=== PATIENT | male | born 1955 | race Caucasian/White ===

== ENCOUNTER 2022-11-15 15:36 | Observation (INO) | payer MEDICARE, MEDICAID, SELFPAY ==
[2022-11-15] VITALS (18 sets, daily range): BP systolic 102–148; BP diastolic 70–104; PULSE 72–102; RESP 14–56; TEMP 36.8; O2SAT 93–99; BMI 29.4; BMI 25.7
--- NOTE | 2022-11-15 15:43 | XR_ITS ---
The [address] [address] Patient Name: JOLENE WILKES MRN: [id number] date: 1955 Sex: M Assigned Patient Location: ER Current Patient Location: Accession/Order Number: [id number] Exam Date: 11/15/2022 15:49 Report Date: 11/15/2022 16:11 At the request of: NAVA MOSQUEDA Procedure: XR chest 1V EXAM: XR chest 1V at 1547 hours HISTORY: Dyspnea COMPARISON: 03/17/2021 TECHNIQUE: AP upright portable chest x-ray FINDINGS: Study is limited by shallow inspiration and projection. The heart appears enlarged, with mild prominence of the central pulmonary vasculature. There is no clear evidence of a focal infiltrate, effusion or pneumothorax. The osseous structures are intact. XR/XR chest 1V IMPRESSION: Shallow inspiration. The cardiac enlargement is at least in part related to projection and inspiration effort. There is no clear evidence of a focal infiltrate or overt cardiac decompensation. A follow-up chest x-ray encouraging the patient to take a deep inspiration while in the fully upright position is recommended. Electronically authenticated by: SHARONA HORNE Date: 11/15/2022 16:11
--- NOTE | 2022-11-15 15:43 | CT_ITS ---
[address] [address] Patient Name: JOLENE WILKES MRN: [id number] date: 1955 Sex: M Assigned Patient Location: ER Current Patient Location: .MAIN Accession/Order Number: [id number] Exam Date: 11/15/2022 16:01 Report Date: 11/15/2022 17:00 At the request of: NAVA MOSQUEDA Procedure: CT angio chest EXAMINATION: CT angio chest, CT angio abdomen pelvis HISTORY: Dissection , extreme shortness of breath COMPARISON: CT abdomen pelvis 03/17/2021 stable 3.5 cm aneurysmal dilation of the right common iliac artery distal to the stent. TECHNIQUE: After obtaining the patient's consent, CT images of the chest, abdomen and pelvis were obtained with non-ionic intravenous contrast material. Axial, Coronal, and Sagittal images. Multi-planar reformatted/3-D images were created to optimize visualization of vascular anatomy. Dose reduction techniques were achieved by using automated exposure control and/or adjustment of mA and/or kV according to patient size and/or use of iterative reconstruction technique. FINDINGS: PULM VASC: No pulmonary embolism or abnormal opacity. LUNGS: Mild emphysematous changes. Small triangular-shaped density within lingula, likely atelectasis. PLEURA: No mass, effusion, or pneumothorax. ANNIE: No mass or adenopathy. MEDIASTINUM: No mass or adenopathy. CARDIAC: No enlargement, pericardial effusion, or pericardial thickening. CHEST WALL: No mass or axillary adenopathy. AORTA/VASCULAR: Large amount of noncalcified plaque throughout the thoracic and abdominal aorta. Fusiform aneurysmal dilation of the infrarenal abdominal aorta with prior aortobifemoral endograft stent placement. No evidence of leakage. Stable aneurysmal dilation of the common iliac arteries distal to the stents, 3.5 cm in diameter on the right, 3.0 cm on left. CELIAC ARTERY: Mild atherosclerotic narrowing at origin. SMA: Mild atherosclerotic narrowing at origin. RENAL ARTERIES: Moderate atherosclerotic narrowing at origins. LIVER: No enlargement, atrophy, abnormal density, or significant focal lesion. BILIARY: No visible dilatation or calcification. PANCREAS: No lesion, fluid collection, ductal dilatation, or atrophy. SPLEEN: No enlargement or focal lesion. ADRENALS: No mass or enlargement. KIDNEYS: Numerous bilateral renal cysts compatible with polycystic kidney disease. Small, atrophic right kidney. No mass, obstruction, or calcification. BOWEL/MESENTERY: Numerous noninflamed diverticula along the descending and sigmoid colon. No visible mass, obstruction, or bowel wall thickening. RETROPERITONEUM: No mass or adenopathy. LYMPHNODES: No enlarged lymph nodes. BLADDER: No wall thickening or mass. PELVIC ORGANS: Appropriate for age. ABDOMINAL WALL: No mass or hernia. BONES: No bony lesion or fracture. OTHER: Negative. CT/CT angio chest IMPRESSION: 1. No pulmonary embolism. 2. No aortic dissection. 3. Prior aortobifemoral endograft stent placement for aortic aneurysm without evidence of extravasation/leakage. Stable common iliac artery aneurysms bilaterally just distal to the ends of the endovascular stents. 4. Mild emphysematous changes within the lungs and small area of atelectasis, possibly infiltrates within lingula. 5. Polycystic kidney disease with marked atrophy of right kidney. No obstructive uropathy or appreciable stones. Electronically authenticated by: DION SAMSON Date: 11/15/2022 17:00
--- NOTE | 2022-11-15 15:46 | ECG_ITS ---
The [facility] Test Date: 2022-11-15 Pat Name: JOLENE WILKES Department: Room: [facility] Gender: Male [employer] Engineer: : 1955 Requested By: ROXANN DOBBINS Order Number: [id number] Reading MD: ROXANN DOBBINS Measurements Intervals [place] Rate: 98 P: 32 WA: 168 QRS: -5 QRSD: 84 T: 50 QT: 350 QTc: 406 Interpretive Statements 1100 Sinus rhythm 6220 Possible left atrial enlargement 9130 borderline ECG No previous ECG available for comparison Electronically Signed On 11-16-2022 6:21:04 EDT by ROXANN DOBBINS
--- NOTE | 2022-11-15 15:49 | ED.CHESTPAI1 ---
HPI - Chest Pain General Chief Complaint: Chest Pain Stated Complaint: CHEST PAIn Time Seen by Provider: 11/15/22 15:43 History of Present Illness HPI narrative: patient is a 67-year-old male who presents to the emergency department for the evaluation of chest pain and shortness of breath that he states began at 9 AM this morning. Patient presents proximal he seven hours after symptoms began, he states that he has been like this for the last several hours, no fevers, sputum production or hemoptysis. He has had dry coughing. He has a history of chronic obstructive pulmonary disease. He denies any history of heart attack or stroke. He does not take medications for diabetes. He does not wear home oxygen. No medications taken prior to arrival. History is limited as the patient is grunting, breathing rapidly and grabbing at his chest during initial interview. patient points to pain at the lower, inferior sternum and epigastrium. Related Data Home Medications Medication Instructions Recorded Confirmed amlodipine 10 mg tablet 10 mg PO QDAY 11/15/22 11/15/22 aspirin 81 mg tablet,delayed 81 mg PO QDAY 11/15/22 11/15/22 release atorvastatin 40 mg tablet 40 mg PO QDAY 11/15/22 11/15/22 carvedilol 12.5 mg tablet 12.5 mg PO Q12H 11/15/22 11/15/22 furosemide 20 mg tablet 20 mg PO QDAY 11/15/22 11/15/22 hydralazine 50 mg tablet 50 mg PO Q12H 11/15/22 11/15/22 losartan 25 mg tablet 25 mg PO QDAY 11/15/22 11/15/22 sodium bicarbonate 650 mg tablet 650 mg PO TID 11/15/22 11/15/22 Allergies Allergy/AdvReac Type Severity Reaction Status Date / Time No Known Allergies Allergy Verified 11/15/22 15:45 Review of Systems ROS Constitutional Denies: fever or chills Ears, nose, mouth, and throat Denies: throat pain Cardiovascular Reports: chest pain; Denies: palpitations Respiratory Reports: shortness of breath and cough Gastrointestinal Reports: abdominal pain; Denies: nausea or vomiting Musculoskeletal Denies: back pain Integumentary/Breast Denies: rash PFSH [facility], [facility] Medical History (Updated 11/15/22 @ 17:20 by Sarah Shelton) Surgical History (Updated 11/15/22 @ 17:11 by Sarah Shelton) Social History Smoking status: Current every day smoker Exam Narrative Exam Narrative: Gen.: Awake, alert, in mild distress Head: Normocephalic, atraumatic ENT: Moist mucous membranes Respiratory: tachypnea, faint expiratory wheezing Cardio: Regular rate and rhythm Gastrointestinal: Abdomen is soft, nondistended and nontender to palpation Extremities: Moves extremities equally, no injuries noted Psych: Normal mood and affect Neuro: No focal neuro deficit Skin: Warm, dry, intact Constitutional Vital Signs, click to edit/add: Last Vital Signs Pulse 87 11/15/22 17:31 Resp 22 11/15/22 17:31 BP 137/82 H 11/15/22 17:31 Pulse Ox 99 11/15/22 17:31 O2 Del Method Room Air 11/15/22 17:23 O2 Flow Rate 2 11/15/22 16:02 Course Vital Signs Vital signs: Vital Signs Pulse Rate 95 H 11/15/22 15:43 Respiratory Rate 31 H 11/15/22 15:43 Blood Pressure 148/104 H 11/15/22 15:43 Pulse Oximetry 95 11/15/22 15:43 Pulse Rate 87 11/15/22 17:31 Respiratory Rate 22 11/15/22 17:31 Blood Pressure 137/82 H 11/15/22 17:31 Pulse Oximetry 99 11/15/22 17:31 Oxygen Delivery Method Room Air 11/15/22 17:23 Oxygen Delivery Flow Rate 2 11/15/22 16:02 MDM - Chest Pain MDM Narrative Medical decision making narrative: on initial evaluation in the emergency department, patient was grunting, clutching at his chest and abdomen and tachypneic. Due to his presentation and concern for possible aortic dissection, the patient was sent emergently for CT angiogram of the chest/abdomen/pelvis. Chest x-ray was performed at the bedside which was unremarkable, after the patient returned from CT, we received lab studies showing chronic kidney disease and he was treated with gentle IV hydration. He does have a history of chronic kidney disease, polycystic kidneys, previous AAA repair. He also has a history of congestive heart failure and cardiomyopathy, although his BNP is improved from previous and he has no evidence of pulmonary edema on chest x-ray. He was treated with morphine, Zofran, Solu-Medrol, breathing treatments. He is resting much more comfortably on reevaluation and CT feels better. He will be admitted for rule out ACS/chronic obstructive pulmonary disease exacerbation to ICU stepdown to hospitalist. Dr. De La Cruz stated that we did not need to wait for a 2nd troponin prior to admission, patient will be admitted at this time. Medical Records Data Attestation: I reviewed the patient's medical records. Lab Data Attestation: I reviewed the patient's lab results. Labs: Lab Results 11/15/22 Range/Units 15:50 WBC 13.3 H (4.0-11.0) 10^3/uL RBC 5.70 (4.70-6.10) 10^6/uL Hgb 15.3 (14.0-18.0) g/dL Hct 46.3 (42.0-54.0) % MCV 81.2 (80.0-94.0) fL MCH 26.8 (25.9-34.0) pg MCHC 33.0 (29.9-35.2) g/dL RDW 14.3 (11.0-15.0) % Plt Count 219 (150-450) 10^3/uL MPV 10.2 (9.5-13.5) fL Neut % (Auto) 85.5 H (43.0-75.0) % Lymph % (Auto) 6.6 L (20.5-60.0) % [place] % (Auto) 6.3 (1.7-12.0) % Eos % (Auto) 0.6 L (0.9-7.0) % Baso % (Auto) 0.5 (0.2-2.0) % Neut # (Auto) 11.3 H (1.4-6.5) 10^3/uL Lymph # (Auto) 0.9 L (1.2-3.8) 10^3/uL [place] # (Auto) 0.8 (0.3-0.8) 10^3/uL Eos # (Auto) 0.1 (0.0-0.7) 10^3/uL Baso # (Auto) 0.1 (0.0-0.1) 10^3/uL Abs Immat Gran (auto) 0.07 H (0.00-0.03) 10^3/uL Imm/Tot Granulo (auto) 0.5 (0.0-0.5) % Sodium 137 (136-145) mmol/L Potassium 4.0 (3.5-5.1) mmol/L Chloride 102 (98-107) mmol/L Carbon Dioxide 22.4 (21.0-32.0) mmol/L Anion Gap 16.6 BUN 37.0 H (7.0-18.0) mg/dL Creatinine 2.85 H (0.70-1.30) mg/dL Est GFR ( Amer) 27 L (>=60) Est GFR (Non-Af Amer) 22 L (>=60) BUN/Creatinine Ratio 13.0 Glucose 98 (74-106) mg/dL Lactate 1.4 (0.4-2.0) mmol/L Calcium 9.1 (8.5-10.1) mg/dL Total Bilirubin 0.6 (0.2-1.0) mg/dL AST 16 (15-37) U/L ALT 15 L (16-63) U/L Alkaline Phosphatase 89 (46-116) U/L Troponin I High Sens 37.7 (4.0-76.1) pg/mL NT-Pro-B Natriuret Pep 939.0 H (<=900.0) pg/mL Total Protein 8.3 H (6.4-8.2) g/dL Albumin 3.6 (3.4-5.0) g/dL Globulin 4.7 g/dL Albumin/Globulin Ratio 0.8 Imaging Data Chest x-ray: Attestation: I have reviewed the pertinent imaging results. Radiologist's impression: Procedure: XR chest 1V EXAM: XR chest 1V at 1547 hours HISTORY: Dyspnea COMPARISON: 03/17/2021 TECHNIQUE: AP upright portable chest x-ray FINDINGS: Study is limited by shallow inspiration and projection. The heart appears enlarged, with mild prominence of the central pulmonary vasculature. There is no clear evidence of a focal infiltrate, effusion or pneumothorax. The osseous structures are intact. IMPRESSION: Shallow inspiration. The cardiac enlargement is at least in part related to projection and inspiration effort. There is no clear evidence of a focal infiltrate or overt cardiac decompensation. A follow-up chest x-ray encouraging the patient to take a deep inspiration while in the fully upright position is recommended. Electronically authenticated by: SHARONA HORNE Date: 11/15/2022 16:11 CT scan - chest: Attestation: I have reviewed the pertinent imaging results. Radiologist's impression: Procedure: CT angio chest EXAMINATION: CT angio chest, CT angio abdomen pelvis HISTORY: Dissection , extreme shortness of breath COMPARISON: CT abdomen pelvis 03/17/2021 stable 3.5 cm aneurysmal dilation of the right common iliac artery distal to the stent. TECHNIQUE: After obtaining the patient's consent, CT images of the chest, abdomen and pelvis were obtained with non-ionic intravenous contrast material. Axial, Coronal, and Sagittal images. Multi-planar reformatted/3-D images were created to optimize visualization of vascular anatomy. Dose reduction techniques were achieved by using automated exposure control and/or adjustment of mA and/or kV according to patient size and/or use of iterative reconstruction technique. FINDINGS: PULM VASC: No pulmonary embolism or abnormal opacity. LUNGS: Mild emphysematous changes. Small triangular-shaped density within lingula, likely atelectasis. PLEURA: No mass, effusion, or pneumothorax. ANNIE: No mass or adenopathy. MEDIASTINUM: No mass or adenopathy. CARDIAC: No enlargement, pericardial effusion, or pericardial thickening. CHEST WALL: No mass or axillary adenopathy. AORTA/VASCULAR: Large amount of noncalcified plaque throughout the thoracic and abdominal aorta. Fusiform aneurysmal dilation of the infrarenal abdominal aorta with prior aortobifemoral endograft stent placement. No evidence of leakage. Stable aneurysmal dilation of the common iliac arteries distal to the stents, 3.5 cm in diameter on the right, 3.0 cm on left. CELIAC ARTERY: Mild atherosclerotic narrowing at origin. SMA: Mild atherosclerotic narrowing at origin. RENAL ARTERIES: Moderate atherosclerotic narrowing at origins. LIVER: No enlargement, atrophy, abnormal density, or significant focal lesion. BILIARY: No visible dilatation or calcification. PANCREAS: No lesion, fluid collection, ductal dilatation, or atrophy. SPLEEN: No enlargement or focal lesion. ADRENALS: No mass or enlargement. KIDNEYS: Numerous bilateral renal cysts compatible with polycystic kidney disease. Small, atrophic right kidney. No mass, obstruction, or calcification. BOWEL/MESENTERY: Numerous noninflamed diverticula along the descending and sigmoid colon. No visible mass, obstruction, or bowel wall thickening. RETROPERITONEUM: No mass or adenopathy. LYMPHNODES: No enlarged lymph nodes. BLADDER: No wall thickening or mass. PELVIC ORGANS: Appropriate for age. ABDOMINAL WALL: No mass or hernia. BONES: No bony lesion or fracture. OTHER: Negative. IMPRESSION: 1. No pulmonary embolism. 2. No aortic dissection. 3. Prior aortobifemoral endograft stent placement for aortic aneurysm without evidence of extravasation/leakage. Stable common iliac artery aneurysms bilaterally just distal to the ends of the endovascular stents. 4. Mild emphysematous changes within the lungs and small area of atelectasis, possibly infiltrates within lingula. 5. Polycystic kidney disease with marked atrophy of right kidney. No obstructive uropathy or appreciable stones. Electronically authenticated by: DION SAMSON Date: 11/15/2022 17:00 ECG Data Attestation: I personally reviewed and interpreted this ECG as follows: (normal sinus rhythm at a rate of ninety-eight, no acute ST elevation, no ectopy. EKG reviewed by attending physician) ECG interpretation date: 11/15/22 ECG interpretation time: 15:56 Heart Score History: Moderatly Suspicious ECG: Normal Age: >65 years Risk Factors: >3 Risk Factors/ HX of CAD:2 Troponin: <Normal Limit Total Heart Score Recommendations & Risks:: 5 Discharge Plan Discharge Chief Complaint: Chest Pain Clinical Impression: COPD exacerbation, Chest pain Patient Disposition: Admitted as Observation Time of Disposition Decision: 17:14 Condition: Good Prescriptions / Home Meds: No Action amlodipine 10 mg tablet 10 mg PO QDAY aspirin 81 mg tablet,delayed release (DR/EC) 81 mg PO QDAY atorvastatin 40 mg tablet 40 mg PO QDAY carvedilol 12.5 mg tablet 12.5 mg PO Q12H furosemide 20 mg tablet 20 mg PO QDAY hydralazine 50 mg tablet 50 mg PO Q12H losartan 25 mg tablet 25 mg PO QDAY sodium bicarbonate 650 mg tablet 650 mg PO TID Stand Alone Forms: Portal Instructions
[2022-11-15] MEDS: 0.9 % SODIUM CHLORIDE 1,000 ML 100 ML IV (15:54)
[2022-11-15] MEDS: METHYLPREDNISOLONE SOD SUCC PF 125 MG/2 ML VIAL IVP (15:54)
[2022-11-15] MEDS: ONDANSETRON PF 4 MG/2 ML VIAL IV (15:54)
[2022-11-15] MEDS: MORPHINE SULFATE 4 MG/ML VIAL IV (15:54)
--- NOTE | 2022-11-15 15:54 | CT_ITS ---
[address] [address] Patient Name: JOLENE WILKES MRN: [id number] date: 1955 Sex: M Assigned Patient Location: ED.MAIN Current Patient Location: ED.MAIN Accession/Order Number: [id number] Exam Date: 11/15/2022 16:01 Report Date: 11/15/2022 17:00 At the request of: NAVA MOSQUEDA Procedure: CT angio abdomen pelvis EXAMINATION: CT angio chest, CT angio abdomen pelvis HISTORY: Dissection , extreme shortness of breath COMPARISON: CT abdomen pelvis 03/17/2021 stable 3.5 cm aneurysmal dilation of the right common iliac artery distal to the stent. TECHNIQUE: After obtaining the patient's consent, CT images of the chest, abdomen and pelvis were obtained with non-ionic intravenous contrast material. Axial, Coronal, and Sagittal images. Multi-planar reformatted/3-D images were created to optimize visualization of vascular anatomy. Dose reduction techniques were achieved by using automated exposure control and/or adjustment of mA and/or kV according to patient size and/or use of iterative reconstruction technique. FINDINGS: PULM VASC: No pulmonary embolism or abnormal opacity. LUNGS: Mild emphysematous changes. Small triangular-shaped density within lingula, likely atelectasis. PLEURA: No mass, effusion, or pneumothorax. ANNIE: No mass or adenopathy. MEDIASTINUM: No mass or adenopathy. CARDIAC: No enlargement, pericardial effusion, or pericardial thickening. CHEST WALL: No mass or axillary adenopathy. AORTA/VASCULAR: Large amount of noncalcified plaque throughout the thoracic and abdominal aorta. Fusiform aneurysmal dilation of the infrarenal abdominal aorta with prior aortobifemoral endograft stent placement. No evidence of leakage. Stable aneurysmal dilation of the common iliac arteries distal to the stents, 3.5 cm in diameter on the right, 3.0 cm on left. CELIAC ARTERY: Mild atherosclerotic narrowing at origin. SMA: Mild atherosclerotic narrowing at origin. RENAL ARTERIES: Moderate atherosclerotic narrowing at origins. LIVER: No enlargement, atrophy, abnormal density, or significant focal lesion. BILIARY: No visible dilatation or calcification. PANCREAS: No lesion, fluid collection, ductal dilatation, or atrophy. SPLEEN: No enlargement or focal lesion. ADRENALS: No mass or enlargement. KIDNEYS: Numerous bilateral renal cysts compatible with polycystic kidney disease. Small, atrophic right kidney. No mass, obstruction, or calcification. BOWEL/MESENTERY: Numerous noninflamed diverticula along the descending and sigmoid colon. No visible mass, obstruction, or bowel wall thickening. RETROPERITONEUM: No mass or adenopathy. LYMPHNODES: No enlarged lymph nodes. BLADDER: No wall thickening or mass. PELVIC ORGANS: Appropriate for age. ABDOMINAL WALL: No mass or hernia. BONES: No bony lesion or fracture. OTHER: Negative. CT/CT angio abdomen pelvis IMPRESSION: 1. No pulmonary embolism. 2. No aortic dissection. 3. Prior aortobifemoral endograft stent placement for aortic aneurysm without evidence of extravasation/leakage. Stable common iliac artery aneurysms bilaterally just distal to the ends of the endovascular stents. 4. Mild emphysematous changes within the lungs and small area of atelectasis, possibly infiltrates within lingula. 5. Polycystic kidney disease with marked atrophy of right kidney. No obstructive uropathy or appreciable stones. Electronically authenticated by: DION SAMSON Date: 11/15/2022 17:00
[2022-11-15 16:03] LABS: Basophils Absolute Auto 0.1 10^3/uL (0.0-0.1); Basophils Percent Auto 0.5 % (0.2-2.0); Eosinophils Absolute Auto 0.1 10^3/uL (0.0-0.7); Eosinophils Percent Auto 0.6 % (0.9-7.0); Hematocrit 46.3 % (42.0-54.0); Hemoglobin 15.3 g/dL (14.0-18.0); Immature Granulocytes Abs Auto 0.07 10^3/uL (0.00-0.03); Immature Granulocytes Pct Auto 0.5 % (0.0-0.5); Lymphocytes Absolute Auto 0.9 10^3/uL (1.2-3.8); Lymphocytes Percent Auto 6.6 % (20.5-60.0); Mean Corpuscular Hemoglobin 26.8 pg (25.9-34.0); Mean Corpuscular Volume 81.2 fL (80.0-94.0); Mean Platelet Volume 10.2 fL (9.5-13.5); Monocytes Absolute Auto 0.8 10^3/uL (0.3-0.8); Monocytes Percent Auto 6.3 % (1.7-12.0); Neutrophils Absolute Auto 11.3 10^3/uL (1.4-6.5); Neutrophils Percent Auto 85.5 % (43.0-75.0); Platelet Count 219 10^3/uL (150-450); Red Cell Distribution Width 14.3 % (11.0-15.0); White Blood Count 13.3 10^3/uL (4.0-11.0)
[2022-11-15 16:28] LABS: Lactate/Lactic Acid 1.4 mmol/L (0.4-2.0)
[2022-11-15 16:34] LABS: Alanine Aminotransferase 15 U/L (16-63); Albumin Globulin Ratio 0.8; Albumin Level 3.6 g/dL (3.4-5.0); Alkaline Phosphatase 89 U/L (46-116); Anion Gap 16.6; Aspartate Amino Transferase 16 U/L (15-37); Bilirubin Total 0.6 mg/dL (0.2-1.0); Calcium 9.1 mg/dL (8.5-10.1); Carbon Dioxide 22.4 mmol/L (21.0-32.0); Chloride 102 mmol/L (98-107); Estimated GFR (African America 27 (>=60); Estimated GFR (Non-African Ame 22 (>=60); Globulin 4.7 g/dL; Glucose 98 mg/dL (74-106); Sodium 137 mmol/L (136-145); Total Protein 8.3 g/dL (6.4-8.2); Troponin I High Sensitivity 37.7 pg/mL (4.0-76.1)
[2022-11-15] MEDS: ALBUTEROL SULFATE 2.5 MG/3 ML VIAL NEB IH (17:17)
[2022-11-15] MEDS: IPRATROPIUM/ALBUTEROL SULFATE 3 ML AMPUL.NEB IH ×2 (17:17→22:22)
[2022-11-15] MEDS: ASPIRIN 81 MG TAB.CHEW 162 MG PO (17:45)
--- NOTE | 2022-11-15 18:39 | CA_ITS ---
Patient: JOLENE WILKES Exam Date: 11/16/2022 : 1955 Gender:M Ordering : DR Pool De La Cruz . Admission #: [id number] Family : Order #: [id number] CLICK HERE TO VIEW EXAM ECHOCARDIOGRAM REPORT PROCEDURE: CA ECHO DOPPLER COMPLETE INDICATIONS: Dyspnea COMPARISON: None. DESCRIPTION: COMPLETE ECHOCARDIOGRAM Real-time transthoracic echocardiography with 2D, M-mode, spectral and color flow Doppler performed. QUALITY: Technical quality was good. LEFT VENTRICLE: Normal chamber size. Moderate concentric left ventricular hypertrophy. LV EF: Global left ventricular systolic function is normal. Calculated left ventricular ejection fraction is 64% DIASTOLIC: Diastolic function is indeterminate. ATRIAL SEPTUM: Inadequately seen. LEFT ATRIUM: Mild dilatation. RIGHT ATRIUM: Mild dilatation. RIGHT VENTRICLE: Normal chamber size. Normal right ventricular systolic function. TRICUSPID VALVE: Thickened with normal mobility. Trivial regurgitation. Mild pulmonary hypertension. RVSP 41mmHg MITRAL VALVE: Normal mobility and thickness. No evidence of mitral valve stenosis. There is no mitral annular calcification. Trivial mitral regurgitation. AORTIC VALVE: Normal trileaflet appearance. Mildly calcified aortic valve. Normal leaflet mobility. No evidence of aortic valve stenosis. Trivial aortic regurgitation. AORTIC ROOT: Normal diameter and appearance. PULMONIC VALVE: Normal thickness and mobility. No stenosis. Trivial regurgitation. PERICARDIUM: No evidence of pericardial effusion. IVC: Collapses with inspirations. Normal size. CONCLUSION: Global left ventricular systolic function is normal; visually estimated ejection fraction is 60 to 65%. Moderately increased left ventricular wall thickness. Diastolic function is indeterminate. Biatrial enlargement. Right ventricle is normal in size and systolic function. Mildly elevated right ventricular systolic pressure. No significant valvular abnormalities. Adult Echocardiography Procedure Report Left Ventricle LVEDD (3.7 - 5.6 cm): 4.46 cm LVESD (2.2 - 4.0 cm): 3.09 cm LVIVS thickness (0.6 - 1.2 cm): 1.32 cm LVPW thickness (0.5 - 1.0 cm): 1.40 cm e': 0.11 m/s E - e': 7.02 LVOT Max Gradient: 4.39 mm[Hg] LVOT Area (cm2): 1.05 m/s Peak Velocity (LVOT): 1.05 m/s Mean Velocity (LVOT): 0.77 m/s LVOT Diameter 2.21 cm Left Ventricular Ejection Fraction: 64.42 % Left Atrium LA Volume Index (2D A2C): 38.68 ml/m2 Left Atrium Systolic Dimension: 3.75 cm Mitral Valve MV E to A Ratio: 0.87 Mitral Valve A-Wave Peak Velocity: 0.86 m/s Mitral Valve E-Wave Peak Velocity: 0.75 m/s Right Ventricle RV Internal Diastolic Dimension: 3.31 cm Aorta AO Root Diam: 3.36 cm Ascending Ao Diam: 3.30 cm Aortic Valve AoV Area (Pe[place]): 2.34 cm2, 2.34 cm2 AoV Area (VTI): 2.48 cm2, 2.48 cm2 Peak Velocity(Antegrade Flow): 1.71 m/s Peak Gradient(Antegrade Flow): 11.71 mm[Hg] Mean Velocity(Antegrade Flow): 1.10 m/s Mean Gradient(Antegrade Flow): 5.79 mm[Hg] Velocity Time Integral: 34.90 cm Tricuspid Valve Peak Velocity (Regurgitant Flow): 2.97 m/s, 2.98 m/s, 3.08 m/s Pulmonic Valve Mean Gradient: 3.99 mm[Hg], 3.85 mm[Hg], 3.33 mm[Hg], 2.82 mm[Hg] Mean Velocity: 0.94 m/s, 0.92 m/s, 0.85 m/s, 0.78 m/s Peak Velocity: 1.24 m/s Peak Gradient: 7.08 mm[Hg], 6.56 mm[Hg], 6.16 mm[Hg], 4.96 mm[Hg] Right Atrium Right Atrium Systolic Pressure: 32.19 ml, 32.19 ml Dictated by: Yao Singer M.D. on 11/16/2022 at 12:20 Approved by: Yao Singer M.D. on 11/16/2022 at 12:23
[2022-11-15 19:20] LABS: Creatine Kinase 51 U/L (39-308); Creatine Kinase MB <0.50 ng/mL (<=3.60); Troponin I High Sensitivity 30.1 pg/mL (4.0-76.1)
[2022-11-15] MEDS: LACTATED RINGER'S SOLUTION 1,000 ML 100 ML IV (21:03)
[2022-11-15] MEDS: LEVOFLOXACIN IN DEXTROSE 5 % 750 MG/150 ML PIGGYBACK IV (21:03)
[2022-11-15] MEDS: SODIUM BICARBONATE 325 MG TABLET 650 MG PO (21:06)
[2022-11-16] VITALS (8 sets, daily range): BP systolic 116–139; BP diastolic 66–84; PULSE 63–77; RESP 16–18; TEMP 36.3; O2SAT 94–97
[2022-11-16] MEDS: IPRATROPIUM/ALBUTEROL SULFATE 3 ML AMPUL.NEB IH ×2 (04:20→10:47)
[2022-11-16 05:02] LABS: Alanine Aminotransferase 15 U/L (16-63); Albumin Globulin Ratio 0.7; Albumin Level 2.8 g/dL (3.4-5.0); Alkaline Phosphatase 68 U/L (46-116); Anion Gap 17.1; Aspartate Amino Transferase 11 U/L (15-37); BUN Creatinine Ratio 14.2; Bilirubin Total 0.3 mg/dL (0.2-1.0); Calcium 8.5 mg/dL (8.5-10.1); Carbon Dioxide 18.8 mmol/L (21.0-32.0); Chloride 104 mmol/L (98-107); Estimated GFR (African America 25 (>=60); Estimated GFR (Non-African Ame 21 (>=60); Globulin 4.1 g/dL; Glucose 191 mg/dL (74-106); Potassium 3.9 mmol/L (3.5-5.1); Sodium 136 mmol/L (136-145); Total Protein 6.9 g/dL (6.4-8.2)
[2022-11-16] MEDS: SODIUM BICARBONATE 325 MG TABLET 650 MG PO (05:04)
[2022-11-16] MEDS: LACTATED RINGER'S SOLUTION 1,000 ML 100 ML IV (05:07)
[2022-11-16 07:47] LABS: Basophils Percent Auto 0.2 % (0.2-2.0); Hematocrit 38.6 % (42.0-54.0); Hemoglobin 12.8 g/dL (14.0-18.0); Immature Granulocytes Abs Auto 0.04 10^3/uL (0.00-0.03); Immature Granulocytes Pct Auto 0.6 % (0.0-0.5); Lymphocytes Absolute Auto 0.4 10^3/uL (1.2-3.8); Lymphocytes Percent Auto 5.6 % (20.5-60.0); Mean Corpuscular HGB Conc 33.2 g/dL (29.9-35.2); Mean Corpuscular Hemoglobin 27.1 pg (25.9-34.0); Mean Corpuscular Volume 81.8 fL (80.0-94.0); Mean Platelet Volume 10.7 fL (9.5-13.5); Monocytes Absolute Auto 0.4 10^3/uL (0.3-0.8); Monocytes Percent Auto 6.7 % (1.7-12.0); Neutrophils Absolute Auto 5.5 10^3/uL (1.4-6.5); Neutrophils Percent Auto 86.9 % (43.0-75.0); Platelet Count 174 10^3/uL (150-450); Red Blood Count 4.72 10^6/uL (4.70-6.10); Red Cell Distribution Width 14.2 % (11.0-15.0); White Blood Count 6.3 10^3/uL (4.0-11.0)
[2022-11-16] MEDS: ATORVASTATIN CALCIUM 40 MG TABLET PO (08:50)
[2022-11-16] MEDS: HYDRALAZINE HCL 50 MG TABLET PO (08:50)
[2022-11-16] MEDS: INSULIN ASPART 300 UNIT/3 ML PEN SUBQ (08:51)
[2022-11-16] MEDS: ASPIRIN 81 MG TABLET.DR PO (08:51)
[2022-11-16] MEDS: AMLODIPINE BESYLATE 5 MG TABLET 10 MG PO (08:51)
[2022-11-16] MEDS: CARVEDILOL 12.5 MG TABLET PO (08:51)
[2022-11-16] MEDS: L. ACIDOPHILUS/L.BULGARICUS 1 PACKET GRAN.PACK PO (08:51)
[2022-11-16] MEDS: LOSARTAN POTASSIUM 25 MG TABLET PO (08:56)
[2022-11-16 09:10] LABS: Glucometer 145 mg/dL (74-106)
--- NOTE | 2022-11-16 10:23 | CM.NOTE ---
Rounds made with Dr. De La Cruz, discussed discharge to home today. Pt denies any discharge needs. Pt up ad alfredo in room, lives with in [place] and is independent.
--- NOTE | 2022-11-16 10:26 | P.HP_ITS ---
H&P: HPI History of Present Illness Chief complaint: CHEST PAIN R/O COPD Narrative: Patient was seen and evaluated in the emergency room secondary to increasing chest pressure-evaluation found possible acute exacerbation of COPD. Cardiac markers were negative. Patient was admitted for observation overnight to rule out myocardial ischemia. Laboratory evaluation was good. Patient feels back to baseline. [facility] Medical History (Updated 11/15/22 @ 17:20 by Sarah Shelton) Surgical History (Updated 11/15/22 @ 17:11 by Sarah Shelton) Social History Smoking status: Current every day smoker Meds Home Medications and Allergies Home Medications Medication Instructions Recorded Confirmed Type amlodipine 10 mg tablet 10 mg PO QDAY 11/15/22 11/15/22 History aspirin 81 mg tablet,delayed 81 mg PO QDAY 11/15/22 11/15/22 History release atorvastatin 40 mg tablet 40 mg PO QDAY 11/15/22 11/15/22 History carvedilol 12.5 mg tablet 12.5 mg PO Q12H 11/15/22 11/15/22 History furosemide 20 mg tablet 20 mg PO QDAY 11/15/22 11/15/22 History hydralazine 50 mg tablet 50 mg PO Q12H 11/15/22 11/15/22 History losartan 25 mg tablet 25 mg PO QDAY 11/15/22 11/15/22 History sodium bicarbonate 650 mg tablet 650 mg PO TID 11/15/22 11/15/22 History levofloxacin 750 mg tablet 750 mg PO DAILY 10 days #10 tabs 11/16/22 Rx Allergies Allergy/AdvReac Type Severity Reaction Status Date / Time No Known Allergies Allergy Verified 11/15/22 15:45 Exam Constitutional Vital Signs, click to edit/add: Last Vital Signs Temp 97.3 F L 11/16/22 07:53 Pulse 63 11/16/22 09:05 Resp 18 11/16/22 07:53 BP 139/84 H 11/16/22 08:50 Pulse Ox 97 11/16/22 07:53 O2 Del Method Room Air 11/16/22 07:53 O2 Flow Rate 2 11/15/22 18:37 Documenting provider has reviewed patient's vital signs: yes Common normals: no apparent distress Exam limitations: no altered mental status Respiratory Common normals: normal respiratory effort Cardio Common normals: regular rate, regular rhythm and no murmurs GI Common normals: Normal to inspection, nondistended, normoactive bowel sounds present, soft to palpation and non-tender Results Labs Labs: Short CBC 11/15/22 11/16/22 Range/Units 15:50 04:20 WBC 13.3 H 6.3 (4.0-11.0) 10^3/uL Hgb 15.3 12.8 L (14.0-18.0) g/dL Hct 46.3 38.6 L (42.0-54.0) % Plt Count 219 174 (150-450) 10^3/uL BMP 11/15/22 11/16/22 15:50 04:20 Sodium 137 136 Potassium 4.0 3.9 Chloride 102 104 Carbon Dioxide 22.4 18.8 L BUN 37.0 H 43.0 H Creatinine 2.85 H 3.03 H Glucose 98 191 H Calcium 9.1 8.5 Cardiac Enzymes 11/15/22 Range/Units 18:50 Total Creatine Kinase 51 (39-308) U/L CK-MB (CK-2) <0.50 (<=3.60) ng/mL Liver Function 11/15/22 11/16/22 Range/Units 15:50 04:20 Total Bilirubin 0.6 0.3 (0.2-1.0) mg/dL AST 16 11 L (15-37) U/L ALT 15 L 15 L (16-63) U/L Alkaline Phosphatase 89 68 (46-116) U/L Albumin 3.6 2.8 L (3.4-5.0) g/dL Assessment and Plan Assessment and Plan (1) COPD exacerbation: (2) Chest pain: Plan Chest pain-myocardial infarction ruled out-check on echocardiogram, initial report is greater than 55% ejection fraction. At this point with him overall improved he will be discharged home in improving condition. Medications see list. Follow-up with PCP within the next week. Patient exacerbation of COPD did have some hyperglycemia with the steroids. We will hold off on that as an outpatient but continue antibiotics and is home treatments.
--- NOTE | 2022-11-17 07:26 | CM.NOTE ---
11/16/22- Medicare Outpatient Observation Notice discussed with pt, pt verbalizes understanding and signs paper. Original given to pt and copy placed on pt's chart.
--- NOTE | 2022-11-17 16:07 | CM.DCFOLLOWU ---
Person spoke with:patient's How are you feeling? well How is your pain? no pain Did you understand your discharge instructions? yes Do you have any questions about your discharge instructions? no Were you given any prescriptions at discharge? yes Were you able to get your prescriptions filled? yes Do you understand how to take your medications as ordered? yes Do you have any questions about your follow up appointment and do you plan to keep your follow up appointment? no questions, follow up scheduled with Suzi Jacome on November 24 2022 Is there anything else that you would like to discuss? no Questions/Comments/Concerns/Other:
== END 2022-11-16 12:51 | disposition home or self-care (01) ==
LOC: ER 17:54 → ICU 18:17
PROVIDERS: Physician Assistant; Admitting Provider Family Medicine; Emergency Provider Emergency Medicine; Visit Provider Family Medicine
DX: J44.1 Chronic obstructive pulmonary disease with (acute) exacerbation (principal); R07.9 Chest pain, unspecified; F17.210 Nicotine dependence, cigarettes, uncomplicated; Z79.82 Long term (current) use of aspirin; Z79.899 Other long term (current) drug therapy; R73.9 Hyperglycemia, unspecified; T38.0X5A Adverse effect of glucocorticoids and synthetic analogues, initial encounter; N18.9 Chronic kidney disease, unspecified; I50.9 Heart failure, unspecified; Q61.3 Polycystic kidney, unspecified
CPT/HCPCS: 36415; 71045; 71275; 74174; 80053; 82550; 82553; 82948; 83605; 83735; 83880; 84484; 85025; 87070; 93005; 93306; 94640; 94667; 94668; 94761; 96374; 96375; 99285; G0378; J2930; Q9966

== ENCOUNTER 2022-11-20 12:22 | Emergency (ER) | payer MEDICARE, MEDICAID, SELFPAY ==
[2022-11-20] VITALS (17 sets, daily range): BP systolic 87–138; BP diastolic 58–117; PULSE 69–77; RESP 14–26; O2SAT 88–100; BMI 34.9
--- NOTE | 2022-11-20 12:30 | ECG_ITS ---
The [facility] Test Date: 2022-11-20 Pat Name: JOLENE WILKES Department: Room: - Gender: Male [employer]: : 1955 Requested By: [id number] Order Number: [id number] Reading MD: ALEJANDRINA SIDHU Measurements Intervals [place] Rate: 74 P: 67 NM: 182 QRS: 17 QRSD: 84 T: 69 QT: 394 QTc: 422 Interpretive Statements [address]/T wave changes, can't exclude inferolateral ischemia 9110 normal ECG Compared to ECG 11/15/2022 15:46:28 No significant changes Electronically Signed On 11-20-2022 14:36:56 EDT by ALEJANDRINA SIDHU
--- NOTE | 2022-11-20 12:30 | CT_ITS ---
The [address] [address] Patient Name: JOLENE WILKES MRN: [id number] date: 1955 Sex: M Assigned Patient Location: ED.MAIN Current Patient Location: ER Accession/Order Number: [id number] Exam Date: 11/20/2022 12:30 Report Date: 11/20/2022 13:43 At the request of: KARO JOSEPH Procedure: CT stroke head/brain wo con CT stroke head/brain wo con CLINICAL HISTORY: syncope. COMPARISON: 06/19/2017. TECHNIQUE: Noncontrast axial CT images of the brain were obtained from the vertex through the skull base. Sagittal and coronal reconstructions. Bone and brain windows are provided for review. Dose reduction techniques were achieved by using automated exposure control and/or adjustment of mA and/or kV according to patient size and/or use of iterative reconstruction technique. FINDINGS: Global volume loss and ex vacuo prominence of the ventricles. Multifocal white matter hypodensity is nonspecific but likely from small vessel ischemic disease. No mass, midline shift, acute bleed, or extra-axial fluid collection. No CT evidence of acute large territorial infarction. Visualized paranasal sinuses are clear. The mastoid air cells are well aerated. Scalp, calvarium and orbital contents are free of disease. CT/CT stroke head/brain wo con IMPRESSION: Small vessel ischemic and age related changes of the brain as above, similar to prior. No acute process noncontrast head CT. Findings discussed with Dr. Joseph on date of study at 1:40 PM. Electronically authenticated by: JAILYN PATRICIA Date: 11/20/2022 13:43
--- NOTE | 2022-11-20 12:30 | XR_ITS ---
The [address] [address] Patient Name: JOLENE WILKES MRN: [id number] date: 1955 Sex: M Assigned Patient Location: ED.MAIN Current Patient Location: ER Accession/Order Number: [id number] Exam Date: 11/20/2022 13:08 Report Date: 11/20/2022 13:41 At the request of: KARO JOSEPH Procedure: XR chest 1V PROCEDURE: XR chest 1V DATE: 11/20/2022 12:08 PM CDT COMPARISONS: 11/15/2022 CLINICAL INDICATION: 67 years Male syncope FINDINGS: The cardiomediastinal silhouette and pulmonary vasculature are within normal limits. The thoracic aorta is somewhat tortuous and prominent, stable. The lungs are clear. There is no evidence of pleural effusion or pneumothorax. XR/XR chest 1V IMPRESSION: This is a better inspiratory exam than 11/15/2022. Stable chest. Electronically authenticated by: BI ODELL Date: 11/20/2022 13:41
--- NOTE | 2022-11-20 12:30 | ED.SYNCOPE1 ---
HPI - Syncope General Chief Complaint: Syncope Stated Complaint: other Time Seen by Provider: 11/20/22 12:29 History of Present Illness HPI narrative: Patient presents to emergency department with the complaint of syncope. Patient was brought in by private car after he was Working out in the yard all morning and hot humid day has not had anything to eat or drink. He was talking to his grandson and suddenly was just going out of it. He did not fall but was laid down by the family and dragged into the car. Family drove him to the hospital for evaluation. The patient was not cyanotic but was very pale. Has a history of aneurysms. He was seen in the emergency department on Tuesday with complaint of chest pain. Patient has a history of chronic kidney disease.Patient states he had the same thing happened to him several months ago and he was dehydrated at that time. He denies being sick with any fever, chills, or cough. He has not had any upper respiratory infection symptoms. Denies any nausea, vomiting, diarrhea, constipation, abdominal pain. He denies any chest pain, shortness of breath. Patient's glucose was normal. Family denies any seizure activity. Related Data Home Medications Medication Instructions Recorded Confirmed amlodipine 10 mg tablet 10 mg PO QDAY 11/15/22 11/15/22 aspirin 81 mg tablet,delayed 81 mg PO QDAY 11/15/22 11/15/22 release atorvastatin 40 mg tablet 40 mg PO QDAY 11/15/22 11/15/22 carvedilol 12.5 mg tablet 12.5 mg PO Q12H 11/15/22 11/15/22 furosemide 20 mg tablet 20 mg PO QDAY 11/15/22 11/15/22 hydralazine 50 mg tablet 50 mg PO Q12H 11/15/22 11/15/22 losartan 25 mg tablet 25 mg PO QDAY 11/15/22 11/15/22 sodium bicarbonate 650 mg tablet 650 mg PO TID 11/15/22 11/15/22 Previous Rx's Medication Instructions Recorded levofloxacin 750 mg tablet 750 mg PO DAILY 10 days #10 tabs 11/16/22 Allergies Allergy/AdvReac Type Severity Reaction Status Date / Time No Known Allergies Allergy Verified 11/15/22 15:45 Review of Systems ROS Status of ROS 10 or more systems reviewed and unremarkable except as noted in history and below [facility] Medical History (Updated 11/20/22 @ 16:30 by Korin Piedra MD) Surgical History (Updated 11/15/22 @ 17:11 by Sarah Shelton) Social History Smoking status: Current every day smoker Exam Narrative Exam Narrative: Nurses notes and vital signs reviewed and patient is not hypoxic. General: Groggy and not responding to verbal stimuli. Arousable only to painful stimuli.localizes pain. Skin: Warm, diaphoretic, moderate pallor noted. No Rash Head: Normocephalic, atraumatic. Neck: Supple, non-tender. Eye: Pupils are equal, round and EOMI. No scleral icterus. Ears, Nose, Mouth, and Throat: TM clear, no posterior oropharynx erythema or nasal mucosal hypertrophy, uvula is mid-line Oral mucosa is dry Cardiovascular: Regular Rate and Rhythm without murmur, gallop or rub. Respiratory: No accessory muscle use or respiratory distress. Lungs are clear to auscultation, no wheezing, rales or rhonchi Chest Wall: no tenderness Back: No midline thoracic or lumbar vertebral tenderness. No CVA tenderness Musculoskeletal: normal ROM, no calf or popliteal tenderness, no lower extremity edema/swelling GI: Abdomen is soft, non-distended. Normal bowel sounds. No masses appreciated. No tenderness to palpation. No rebound, guarding, or rigidity noted. Neurological: A&O x4. No cranial nerve dysfunction observed. No truncal ataxia. Moves all extremities. Sensation intact. Psychiatric: Cooperative and interactive. Normal mood and affect. Constitutional Vital Signs, click to edit/add: Last Vital Signs Pulse 70 11/20/22 16:00 Resp 26 H 11/20/22 16:00 BP 138/117 H 11/20/22 16:30 Pulse Ox 100 11/20/22 16:00 O2 Del Method Nasal Cannula 11/20/22 13:01 O2 Flow Rate 2 11/20/22 13:01 Course Vital Signs Vital signs: Vital Signs Pulse Rate 73 11/20/22 12:24 Respiratory Rate 17 11/20/22 12:24 Blood Pressure 95/68 11/20/22 12:24 Pulse Oximetry 100 11/20/22 12:24 Pulse Rate 70 11/20/22 16:00 Respiratory Rate 26 H 11/20/22 16:00 Blood Pressure 138/117 H 11/20/22 16:30 Pulse Oximetry 100 11/20/22 16:00 Oxygen Delivery Method Nasal Cannula 11/20/22 13:01 Oxygen Delivery Flow Rate 2 11/20/22 13:01 MDM - Syncope MDM Narrative Medical decision making narrative: Patient's mentation improved after I've raised his legs for 2 minutes. He was given 3 L normal saline. Patient had imaging for CVA, and non destructive tester done which did not show anything acute. Patient has chronic kidney disease. He was titrated for [address] scan. The patient's patient was normal when he recovered he was not postictal and his vital signs were stable. He did not have any complaints. He felt much better with hydration and was urinating. Patient was offered an overnight stay in the hospital for continuous IV hydration a little of the imaging plus his chronic kidney disease from which she would benefit. The patient stated he does not wish to be in the hospital she is tolerating by mouth and he can drink fluids at home. He will follow up with his working manager to have to labs repeated. The patient is awake alert oriented ?4. He is able to make educated decisions and does not have any Cognitive impairment. He understands that his kidney function can worsen to the point where he would need dialysis and he understands. The patient has remained hemodynamically stable. No additional indication for emergent studies at this time. I answered all questions. Discussed discharge instructions including standard anticipatory guidance and what should prompt a return to the emergency department, including if they get worse are not getting better or develops any new or concerning symptoms. I've given them specific time frame in which to follow-up, and who to follow-up with. The patient demonstrates understanding. Patient is nontoxic and stable for discharge with outpatient follow-up. This note was created with the assistance of a speech recognition program. Although the intention is to generate documents that actually reflects the content of the visit, no guarantees can be provided that every mistake has been identified and corrected by editing. Differential Diagnosis Differential diagnosis: Likely syncope due to orthostatic hypotension and dehydration Medical Records Attestation: I reviewed the patient's medical records. Lab Data Attestation: I reviewed the patient's lab results. Labs: Lab Results 11/20/22 Range/Units 12:25 WBC 12.2 H (4.0-11.0) 10^3/uL RBC 5.72 (4.70-6.10) 10^6/uL Hgb 15.6 (14.0-18.0) g/dL Hct 46.1 (42.0-54.0) % MCV 80.6 (80.0-94.0) fL MCH 27.3 (25.9-34.0) pg MCHC 33.8 (29.9-35.2) g/dL RDW 14.4 (11.0-15.0) % Plt Count 185 (150-450) 10^3/uL MPV 9.9 (9.5-13.5) fL Neut % (Auto) 66.4 (43.0-75.0) % Lymph % (Auto) 17.5 L (20.5-60.0) % Reeves % (Auto) 13.5 H (1.7-12.0) % Eos % (Auto) 0.9 (0.9-7.0) % Baso % (Auto) 0.5 (0.2-2.0) % Neut # (Auto) 8.1 H (1.4-6.5) 10^3/uL Lymph # (Auto) 2.1 (1.2-3.8) 10^3/uL Reeves # (Auto) 1.7 H (0.3-0.8) 10^3/uL Eos # (Auto) 0.1 (0.0-0.7) 10^3/uL Baso # (Auto) 0.1 (0.0-0.1) 10^3/uL Abs Immat Gran (auto) 0.15 H (0.00-0.03) 10^3/uL Imm/Tot Granulo (auto) 1.2 H (0.0-0.5) % PT 10.9 (9.0-11.6) sec INR 1.03 APTT 27.5 (22.3-36.2) sec Sodium 136 (136-145) mmol/L Potassium 4.1 (3.5-5.1) mmol/L Chloride 103 (98-107) mmol/L Carbon Dioxide 19.8 L (21.0-32.0) mmol/L Anion Gap 17.3 BUN 62.0 H (7.0-18.0) mg/dL Creatinine 3.33 H (0.70-1.30) mg/dL Est GFR ( Amer) 23 L (>=60) Est GFR (Non-Af Amer) 19 L (>=60) BUN/Creatinine Ratio 18.6 Glucose 114 H (74-106) mg/dL Calcium 8.7 (8.5-10.1) mg/dL Total Bilirubin 0.5 (0.2-1.0) mg/dL AST 15 (15-37) U/L ALT 18 (16-63) U/L Alkaline Phosphatase 72 (46-116) U/L Troponin I High Sens 50.4 (4.0-76.1) pg/mL Total Protein 7.9 (6.4-8.2) g/dL Albumin 3.1 L (3.4-5.0) g/dL Globulin 4.8 g/dL Albumin/Globulin Ratio 0.6 ECG Data Attestation: I personally reviewed and interpreted this ECG as follows: Discharge Plan Discharge Chief Complaint: Syncope Clinical Impression: Acute kidney injury, Dehydration Patient Disposition: Home, Self-Care Time of Disposition Decision: 16:30 Condition: Fair Mode of Transportation: Private Vehicle Prescriptions / Home Meds: No Action amlodipine 10 mg tablet 10 mg PO QDAY aspirin 81 mg tablet,delayed release (DR/EC) 81 mg PO QDAY atorvastatin 40 mg tablet 40 mg PO QDAY carvedilol 12.5 mg tablet 12.5 mg PO Q12H furosemide 20 mg tablet 20 mg PO QDAY hydralazine 50 mg tablet 50 mg PO Q12H losartan 25 mg tablet 25 mg PO QDAY sodium bicarbonate 650 mg tablet 650 mg PO TID levofloxacin 750 mg tablet 750 mg PO DAILY 10 Days Qty: 10 0RF Instructions: Dehydration (ED), Acute Kidney Injury (DC), Syncope (ED) Stand Alone Forms: Portal Instructions Referrals: Suzi Jacome [Primary Care Provider] - 1 week Discharge Date/Time: 11/20/22 17:13
--- NOTE | 2022-11-20 12:31 | CT_ITS ---
The [address] [address] Patient Name: JOLENE WILKES MRN: [id number] date: 1955 Sex: M Assigned Patient Location: ER Current Patient Location: Accession/Order Number: [id number] Exam Date: 11/20/2022 12:35 Report Date: 11/20/2022 13:51 At the request of: KARO JOSEPH Procedure: CT angio neck CT angio head, CT angio neck CLINICAL HISTORY: Syncope/unresponsiveness. COMPARISON: 11/20/2022. CTA HEAD AND NECK TECHNIQUE: Axial CT angiography of the head and neck is performed following administration of 100 mL of Omnipaque 350. Sagittal, coronal, and 3-D MIP reconstructed images. Additional 3-D post process images were created on a separate workstation. Vascular stenosis are calculated using NASCET criteria. Dose reduction techniques were achieved by using automated exposure control and/or adjustment of mA and/or kV according to patient size and/or use of iterative reconstruction technique. CTA HEAD FINDINGS: Diffuse intracranial atherosclerotic irregularity throughout the vessels. Intracranial carotid arteries with extensive atherosclerotic calcifications but no occlusion. Anterior cerebral arteries are patent. Middle cerebral arteries are patent. Posterior cerebral arteries are patent bilaterally. The basilar artery is patent. No evidence of aneurysm or vascular malformation. CTA NECK FINDINGS: Right common carotid artery: Patent. Right internal carotid artery: Up to 40% narrowing right proximal and mid carotid artery. Right external carotid artery: Patent. Left common carotid artery: Patent with scattered calcifications at the bifurcation. Left internal carotid artery: Scattered atherosclerotic soft and calcific lack but up to 10% narrowing proximal to mid. Left external carotid artery: 50% narrowing from calcific plaque at the left external carotid artery origin. Right vertebral artery: Hypoplastic with prominent calcifications distally and mostly terminates in a right PICA, with a miniscule residual vessel during the basilar. Left vertebral artery: A few small scattered atherosclerotic calcifications but widely patent. Dominant vertebral artery: Left vertebral artery dominant. Extravascular findings: Mild emphysema in the lung apices. No clinically significant head and neck abnormality. CT/CT angio neck IMPRESSION: Scattered intracranial and extracranial atherosclerotic disease as noted but overall patent vessels. Tiny hypoplastic right vertebral artery mostly terminating in a PICA, variant. Electronically authenticated by: JAILYN Goins: 11/20/2022 13:51
--- NOTE | 2022-11-20 12:31 | CT_ITS ---
The [address] [address] Patient Name: JOLENE WILKES MRN: [id number] date: 1955 Sex: M Assigned Patient Location: ER Current Patient Location: Accession/Order Number: [id number] Exam Date: 11/20/2022 12:35 Report Date: 11/20/2022 13:51 At the request of: KARO JOSEPH Procedure: CT angio head CT angio head, CT angio neck CLINICAL HISTORY: Syncope/unresponsiveness. COMPARISON: 11/20/2022. CTA HEAD AND NECK TECHNIQUE: Axial CT angiography of the head and neck is performed following administration of 100 mL of Omnipaque 350. Sagittal, coronal, and 3-D MIP reconstructed images. Additional 3-D post process images were created on a separate workstation. Vascular stenosis are calculated using NASCET criteria. Dose reduction techniques were achieved by using automated exposure control and/or adjustment of mA and/or kV according to patient size and/or use of iterative reconstruction technique. CTA HEAD FINDINGS: Diffuse intracranial atherosclerotic irregularity throughout the vessels. Intracranial carotid arteries with extensive atherosclerotic calcifications but no occlusion. Anterior cerebral arteries are patent. Middle cerebral arteries are patent. Posterior cerebral arteries are patent bilaterally. The basilar artery is patent. No evidence of aneurysm or vascular malformation. CTA NECK FINDINGS: Right common carotid artery: Patent. Right internal carotid artery: Up to 40% narrowing right proximal and mid carotid artery. Right external carotid artery: Patent. Left common carotid artery: Patent with scattered calcifications at the bifurcation. Left internal carotid artery: Scattered atherosclerotic soft and calcific lack but up to 10% narrowing proximal to mid. Left external carotid artery: 50% narrowing from calcific plaque at the left external carotid artery origin. Right vertebral artery: Hypoplastic with prominent calcifications distally and mostly terminates in a right PICA, with a miniscule residual vessel during the basilar. Left vertebral artery: A few small scattered atherosclerotic calcifications but widely patent. Dominant vertebral artery: Left vertebral artery dominant. Extravascular findings: Mild emphysema in the lung apices. No clinically significant head and neck abnormality. CT/CT angio head IMPRESSION: Scattered intracranial and extracranial atherosclerotic disease as noted but overall patent vessels. Tiny hypoplastic right vertebral artery mostly terminating in a PICA, variant. Electronically authenticated by: JAILNY Goins: 11/20/2022 13:51
--- NOTE | 2022-11-20 12:37 | CT_ITS ---
[address] [address] Patient Name: JOLENE WILKES MRN: [id number] date: 1955 Sex: M Assigned Patient Location: ER Current Patient Location: Accession/Order Number: [id number] Exam Date: 11/20/2022 12:35 Report Date: 11/20/2022 13:58 At the request of: KARO JOSEPH Procedure: CT chest w con CT chest w con CLINICAL HISTORY: syncope COMPARISON: 06/23/2022 CT chest. TECHNIQUE: Axial CT images obtained from lung apices through lung bases, following intravenous administration of 100 mL of Omnipaque 350. Coronal and sagittal MIP reconstructions performed. Dose reduction techniques were achieved by using automated exposure control and/or adjustment of mA and/or kV according to patient size and/or use of iterative reconstruction technique. FINDINGS: Lower thyroid unremarkable. No axillary adenopathy. Thoracic spondylosis without acute bony process. Visualized upper abdomen with small left hepatic cyst. Multiple renal cysts. Normal sized adrenal glands. Borderline heart size. Coronary artery calcifications are extensive. No pericardial effusion. Scattered calcified mediastinal and right hilar nodes. Atherosclerotic aorta with no dissection. Ascending aortic ectasia 4.4 cm. Aortic arch measures 4.2 cm. Descending thoracic aorta measures up to 4.6 cm. Lungs with minimal dependent atelectasis. Mild pulmonary emphysema at the apices. No dominant consolidation or effusion. No dominant mass lesion. CT/CT chest w con IMPRESSION: Minimal dependent atelectasis superimposed on pulmonary emphysema and Enlarged thoracic aorta with atherosclerotic changes but no dissection or acute process. Borderline heart size with extensive coronary artery calcifications. Electronically authenticated by: JAILYN PATRICIA Date: 11/20/2022 13:58
--- NOTE | 2022-11-20 12:37 | CT_ITS ---
The [address] [address] Patient Name: JOLENE WILKES MRN: [id number] date: 1955 Sex: M Assigned Patient Location: ER Current Patient Location: ER Accession/Order Number: [id number] Exam Date: 11/20/2022 12:35 Report Date: 11/20/2022 14:04 At the request of: KARO JOSEPH Procedure: CT abdomen pelvis w con CT abdomen pelvis w con CLINICAL HISTORY: syncope COMPARISON: 11/15/2022. TECHNIQUE: Axial CT from lung bases through symphysis pubis following the injection of 100 mL of Omnipaque 350 iodinated contrast material. No oral contrast. Coronal and sagittal reconstructions generated. Dose reduction techniques were achieved by using automated exposure control and/or adjustment of mA and/or kV according to patient size and/or use of iterative reconstruction technique. FINDINGS: CT ABDOMEN FINDINGS: Normal heart size. Liver and spleen with normal size and enhancement. Tiny benign left hepatic lobe cyst. Normal sized adrenal glands. Folds in the gallbladder fundus. Pancreas has normal enhancement with no peripancreatic edema. Bilateral renal scattered cysts with extensive parenchymal volume loss on the right. No hydronephrosis. Aortobiiliac endovascular stent grafts are patent. No gross evidence for endoleak and similar to 11/15/2022 exam with stable aneurysm sac diameter. Stable bilateral residual iliac aneurysms. GI tract nondilated without obstruction. Colonic diverticulosis without diverticulitis. Appendix is negative. No other significant inflammatory change or ascites. CT PELVIS FINDINGS: Prostatomegaly. Urinary bladder with mild chronic outlet obstruction changes but no acute process seen. Lumbar spondylosis without acute bony process. CT/CT abdomen pelvis w con IMPRESSION: No interval acute process. Colonic diverticulosis without diverticulitis. No obstruction or free air. Prostatomegaly with chronic bladder outlet obstruction changes of the urinary bladder. Aortobiiliac endovascular stent grafts are patent without endoleak. Electronically authenticated by: JAILYN PATRICIA Date: 11/20/2022 14:04
[2022-11-20 12:41] LABS: Basophils Absolute Auto 0.1 10^3/uL (0.0-0.1); Basophils Percent Auto 0.5 % (0.2-2.0); Eosinophils Absolute Auto 0.1 10^3/uL (0.0-0.7); Eosinophils Percent Auto 0.9 % (0.9-7.0); Hematocrit 46.1 % (42.0-54.0); Hemoglobin 15.6 g/dL (14.0-18.0); Immature Granulocytes Abs Auto 0.15 10^3/uL (0.00-0.03); Immature Granulocytes Pct Auto 1.2 % (0.0-0.5); Lymphocytes Absolute Auto 2.1 10^3/uL (1.2-3.8); Lymphocytes Percent Auto 17.5 % (20.5-60.0); Mean Corpuscular HGB Conc 33.8 g/dL (29.9-35.2); Mean Corpuscular Hemoglobin 27.3 pg (25.9-34.0); Mean Corpuscular Volume 80.6 fL (80.0-94.0); Mean Platelet Volume 9.9 fL (9.5-13.5); Monocytes Absolute Auto 1.7 10^3/uL (0.3-0.8); Monocytes Percent Auto 13.5 % (1.7-12.0); Neutrophils Absolute Auto 8.1 10^3/uL (1.4-6.5); Neutrophils Percent Auto 66.4 % (43.0-75.0); Platelet Count 185 10^3/uL (150-450); Red Blood Count 5.72 10^6/uL (4.70-6.10); Red Cell Distribution Width 14.4 % (11.0-15.0); White Blood Count 12.2 10^3/uL (4.0-11.0)
[2022-11-20 13:01] LABS: INR 1.03; Partial Thromboplastin Time 27.5 sec (22.3-36.2); Prothrombin Time 10.9 sec (9.0-11.6)
--- NOTE | 2022-11-20 13:03 | PC.NURSE ---
Patient arrives via private vehicle, code purple called. patient placed on cot and brought to room 5 where assessment immediately provided. 2 IV initiated. Pupils noted to be pinpoint but patient is following commands and answers questions. per family, patient was sitting outside, under a tree, and became unresponsive. patient last known well approximately 1130. patient has history of hemorrhagic stroke 5[place]. Patient states he remembers sitting under the tree and then awakening in the car. patient is tearful. patient admits to smoking 1 pack cigarettes daily. denies drinking, denies drugs. patient states he has not ate or drank anything today
[2022-11-20 13:06] LABS: Alanine Aminotransferase 18 U/L (16-63); Albumin Globulin Ratio 0.6; Albumin Level 3.1 g/dL (3.4-5.0); Alkaline Phosphatase 72 U/L (46-116); Anion Gap 17.3; Aspartate Amino Transferase 15 U/L (15-37); BUN Creatinine Ratio 18.6; Bilirubin Total 0.5 mg/dL (0.2-1.0); Calcium 8.7 mg/dL (8.5-10.1); Carbon Dioxide 19.8 mmol/L (21.0-32.0); Chloride 103 mmol/L (98-107); Estimated GFR (African America 23 (>=60); Estimated GFR (Non-African Ame 19 (>=60); Globulin 4.8 g/dL; Glucose 114 mg/dL (74-106); Potassium 4.1 mmol/L (3.5-5.1); Sodium 136 mmol/L (136-145); Total Protein 7.9 g/dL (6.4-8.2); Troponin I High Sensitivity 50.4 pg/mL (4.0-76.1)
[2022-11-20] MEDS: 0.9 % SODIUM CHLORIDE 1,000 ML 150 ML IV (13:18)
[2022-11-20] MEDS: 0.9 % SODIUM CHLORIDE 1,000 ML 150 ML (14:01)
== END 2022-11-20 17:13 | disposition home or self-care (01) ==
PROVIDERS: Emergency Provider Emergency Medicine; PCP Nurse Practitioner
DX: N17.9 Acute kidney failure, unspecified (principal); E86.0 Dehydration; N18.9 Chronic kidney disease, unspecified; Z79.82 Long term (current) use of aspirin; Z79.899 Other long term (current) drug therapy; F17.210 Nicotine dependence, cigarettes, uncomplicated
CPT/HCPCS: 36415; 70450; 70496; 70498; 71045; 71260; 74177; 80053; 84484; 85025; 85610; 85730; 93005; 99285; Q9967

== ENCOUNTER 2022-11-22 11:25 | Outpatient (OUT) | payer MEDICARE, MEDICAID, SELFPAY ==
[2022-11-22 12:35] LABS: Estimated GFR (African America 25 (>=60); Estimated GFR (Non-African Ame 21 (>=60)
== END 2022-11-22 11:26 | disposition home or self-care (01) ==
LOC: LAB 11:28
PROVIDERS: PCP Nurse Practitioner; Visit Provider Emergency Medicine
DX: N18.9 Chronic kidney disease, unspecified (principal)
CPT/HCPCS: 36415; 82565; 84520

== ENCOUNTER 2022-11-24 12:40 | Outpatient (OUT) | payer MEDICARE, MEDICAID, SELFPAY ==
[2022-11-24 14:39] LABS: Anion Gap 16.9; BUN Creatinine Ratio 16.1; Calcium 9.1 mg/dL (8.5-10.1); Carbon Dioxide 22.4 mmol/L (21.0-32.0); Chloride 102 mmol/L (98-107); Estimated GFR (African America 29 (>=60); Estimated GFR (Non-African Ame 24 (>=60); Glucose 87 mg/dL (74-106); Potassium 4.3 mmol/L (3.5-5.1); Sodium 137 mmol/L (136-145)
== END 2022-11-24 12:41 | disposition home or self-care (01) ==
LOC: LAB 12:42
PROVIDERS: PCP Nurse Practitioner; Visit Provider Nurse Practitioner
DX: E86.0 Dehydration (principal); N18.9 Chronic kidney disease, unspecified
CPT/HCPCS: 36415; 80048

== ENCOUNTER 2023-02-07 09:20 | Outpatient (OUT) | payer MEDICARE, MEDICAID, SELFPAY ==
[2023-02-07 09:47] LABS: Bilirubin Urine NEGATIVE (NEGATIVE); Blood Urine TRACE-I (NEGATIVE); Clarity Urine CLEAR (CLEAR); Color Urine LT. YELLOW (YELLOW); Glucose Urine UA NEGATIVE (NEGATIVE); Ketones Urine NEGATIVE (NEGATIVE); Leukocyte Esterase Urine NEGATIVE (NEGATIVE); Nitrite Urine NEGATIVE (NEGATIVE); Protein Urine 100 mg/dL (NEG/TRACE); Urobilinogen Urine 0.2 EU/dL (0.2-1.0)
[2023-02-07 09:52] LABS: Hematocrit 44.9 % (42.0-54.0); Hemoglobin 14.6 g/dL (14.0-18.0); Mean Corpuscular HGB Conc 32.5 g/dL (29.9-35.2); Mean Corpuscular Hemoglobin 27.4 pg (25.9-34.0); Mean Corpuscular Volume 84.4 fL (80.0-94.0); Mean Platelet Volume 9.9 fL (9.5-13.5); Platelet Count 202 10^3/uL (150-450); Red Blood Count 5.32 10^6/uL (4.70-6.10); Red Cell Distribution Width 14.7 % (11.0-15.0); White Blood Count 13.4 10^3/uL (4.0-11.0)
[2023-02-07 09:53] LABS: Bacteria Urine NONE SEEN #/HPF (NONE SEEN); Cast Seen? NONE SEEN #/LPF (NONE SEEN); Crystals Seen? None Seen #/HPF (None Seen); Mucus Urine NONE SEEN (NONE SEEN); RBC Urine NONE SEEN #/HPF (0-2); Squamous Epithelial Cell Urine NONE SEEN #/LPF (NONE/RARE); WBC Urine NONE SEEN #/HPF (NONE SEEN)
[2023-02-07 10:06] LABS: Creatinine Urine Random 55.24 mg/dL (20.00-300.00); Total Protein Urine Random 99.3 mg/dL (<=11.9)
[2023-02-07 10:41] LABS: Albumin Level 3.6 g/dL (3.4-5.0); Anion Gap 12.3; BUN Creatinine Ratio 15.9; Calcium 9.1 mg/dL (8.5-10.1); Carbon Dioxide 25.2 mmol/L (21.0-32.0); Chloride 103 mmol/L (98-107); Estimated GFR (African America 27 (>=60); Estimated GFR (Non-African Ame 22 (>=60); Glucose 87 mg/dL (74-106); Magnesium 2.4 mg/dL (1.8-2.4); Phosphorus 3.6 mg/dL (2.6-4.7); Potassium 4.5 mmol/L (3.5-5.1); Sodium 136 mmol/L (136-145)
[2023-02-08 13:10] LABS: PTH, Intact 41 pg/mL (15-65)
== END 2023-02-07 09:21 | disposition home or self-care (01) ==
LOC: LAB 09:23
PROVIDERS: PCP Nurse Practitioner; Visit Provider Internal Medicine
DX: I12.9 Hypertensive chronic kidney disease with stage 1 through stage 4 chronic kidney disease, or unspecified chronic kidney disease (principal); N18.4 Chronic kidney disease, stage 4 (severe); N25.81 Secondary hyperparathyroidism of renal origin; R80.1 Persistent proteinuria, unspecified; P19.9 Metabolic acidemia in newborn, unspecified; I71.9 Aortic aneurysm of unspecified site, without rupture
CPT/HCPCS: 36415; 80069; 81001; 82306; 82570; 83735; 83970; 84156; 85027